=== PATIENT | female | born 1975 | race Caucasian/White ===

== ENCOUNTER 2016-11-07 10:57 | Emergency (ER) | payer OTHER ==
[2016-11-07 11:25] VITALS: TEMP 98.6
[2016-11-07 12:06] VITALS: BP 114/72; PULSE 84; RESP 18; O2SAT 96
[2016-11-07] MEDS ORDERED: NS 1,000 ML IV ONE (12:25)
--- NOTE | 2016-11-07 13:52 | EDPHY ---
H & P Time Seen by Provider: 11/07/16 13:32 HPI/ROS: CHIEF COMPLAINT: Anxiety HISTORY OF PRESENT ILLNESS: 41-year-old female with a history of anxiety presents with worsening anxiety. She takes Zoloft and Xanax as needed for anxiety. She has been gradually weaning herself off Xanax and was on 0.5 mg twice daily. She decided to throw out her bottle of Xanax on Monday and has not taken any Xanax since then. Since then she has had increasing anxiety and is very concerned about having a seizure. She has been unable to function well because of anxiety. She has an appointment on with her primary care physician. REVIEW OF SYSTEMS: Constitutional: No fever, no chills Eyes: No visual changes ENT: No sore throat Respiratory: No cough, no shortness of breath Cardiac: No chest pain Gastrointestinal: No nausea, no vomiting, no abdominal pain Genitourinary: no dysuria Musculoskeletal: No leg pain or swelling Skin: No rash Neurological: No headache Psychiatric: Anxiety Past Medical/Surgical History: Depression Anxiety Social History: No recent alcohol Smoking Status: Former smoker Physical Exam: General Appearance: Alert, anxious Eyes: Pupils equal and round, no conjunctival pallor or injection ENT, Mouth: Mucous membranes moist Neck: Normal inspection Respiratory: Lungs are clear to auscultation Cardiovascular: Regular rate and rhythm Gastrointestinal: Abdomen is soft and nontender Neurological: A&O, nonfocal, normal gait Skin: Warm and dry, no rash Extremities: Nontender, no pedal edema Psychiatric: anxious Constitutional: Initial Vital Signs Temperature (C) 37.0 C 11/07/16 11:23 Heart Rate 108 H 11/07/16 11:23 Respiratory Rate 24 H 11/07/16 11:23 Blood Pressure 120/66 11/07/16 11:23 O2 Sat (%) 100 11/07/16 11:23 O2 Delivery Mode Room Air Allergies/Adverse Reactions: codeine Allergy (Verified 02/15/13 08:32) Sulfa (Sulfonamide Antibiotics) Allergy (Verified 02/15/13 08:32) Home Medications: Medication Instructions Recorded Zoloft 02/15/13 ALPRAZolam [Xanax 0.5 MG (*)] 0.5 mg PO Q6 PRN #10 tab 11/07/16 Xanax 11/07/16 Medical Decision Making ED Course/Re-evaluation: Patient presents with uncontrolled anxiety. I wrote a prescription for Xanax 10. She understands that this will be orally prescription for benzodiazepines for chronic anxiety. - Data Points Medications Given: Discontinued Medications Sodium Chloride (Ns) 1,000 mls @ 0 mls/hr IV ONCE ONE PRN Reason: Wide Open Stop: 11/07/16 12:26 Last Admin: 11/07/16 12:29 Dose: 1,000 mls Departure - Departure Disposition: Home, Routine, Self-Care Clinical Impression: Anxiety Condition: Good Instructions: Anxiety (ED) Additional Instructions: Keep your appointment on . Referrals: Valery Sheehan MD [Primary Care Provider] - As per Instructions Prescriptions: ALPRAZolam [Xanax 0.5 MG (*)] 0.5 mg PO Q6 PRN #10 tab PRN Reason: Anxiety
== END 2016-11-07 14:10 | disposition home or self-care (01) ==
DX: F41.9 Anxiety disorder, unspecified (principal); Z87.891 Personal history of nicotine dependence

== ENCOUNTER 2017-01-03 13:27 | Emergency (ER) | payer OTHER ==
[2017-01-03 13:34] VITALS: TEMP 97.9
[2017-01-03] MEDS ORDERED: NS 1,000 ML IV ONE (14:06)
[2017-01-03] MEDS ORDERED: CLINDAMYCIN 600 MG/DEXTROSE 50 ML IV ONE (14:06)
[2017-01-03] MEDS ORDERED: DEXAMETHASONE 10 MG/ML VIAL IVP ONE (14:06)
[2017-01-03] MEDS ORDERED: LORazepam 2 MG/ML INJ IVP ONE (14:06)
--- NOTE | 2017-01-03 14:09 | EDPHY ---
H & P Stated Complaint: SENT FROM WITH L [facility]ITONSILLAR [facility] Time Seen by Provider: 01/03/17 13:59 HPI/ROS: CHIEF COMPLAINT: Referred from urgent care for possible peritonsillar abscess HISTORY OF PRESENT ILLNESS: Patient presents to the ED from urgent care with a 3 day history of worsening sore throat. The patient was noted to have some asymmetric swelling in her pharynx which prompted her referral to the emergency department. The patient does report unilateral odynophagia but denies trismus. She denies any complaints of acute cough. She does complain of some left ear pain. The patient denies any recent antibiotic use. She denies prior history of strep throat. The patient has no complaints of acute abdominal pain, vomiting or diarrhea. REVIEW OF SYSTEMS: A comprehensive 10 point review of systems is otherwise negative aside from elements mentioned in the history of present illness. Source: Patient Exam Limitations: No limitations - Personal History LMP (Females 10-55): Hysterectomy Current Tetanus/Diphtheria Vaccine: Unsure Tetanus Vaccine Date: 2006 - Medical/Surgical History Hx Asthma: No Hx Chronic Respiratory Disease: No Hx Diabetes: No Hx Cardiac Disease: No Hx Renal Disease: No Hx Cirrhosis: No Hx Alcoholism: No Hx HIV/AIDS: No Hx Splenectomy or Spleen Trauma: No Other PMH: hysterectomy, anxiety, cholecystectomy - Social History Smoking Status: Former smoker - Physical Exam Exam: General Appearance: Alert, no distress Eyes: Pupils equal and round no pallor or injection ENT, Mouth: There is posterior pharyngeal erythema with a small ulcerative lesion in the peritonsillar tissues, there is no significant trismus, the swelling is asymmetric Respiratory: There are no retractions, lungs are clear to auscultation Cardiovascular: Regular rate and rhythm Gastrointestinal: Abdomen is soft and nontender, no masses, bowel sounds normal Neurological: A&O, normal motor function, normal sensory exam, normal cranial nerves Skin: Warm and dry, no rashes Musculoskeletal: Neck is supple nontender Extremities: symmetrical, full range of motion Constitutional: Initial Vital Signs Temperature (C) 36.6 C 01/03/17 13:31 Heart Rate 77 01/03/17 13:31 Respiratory Rate 16 01/03/17 13:31 Blood Pressure 130/77 H 01/03/17 13:31 O2 Sat (%) 99 01/03/17 13:31 O2 Delivery Mode Room Air Allergies/Adverse Reactions: codeine Allergy (Verified 01/03/17 13:31) Sulfa (Sulfonamide Antibiotics) Allergy (Verified 01/03/17 13:31) FLU VACCINE Allergy (Uncoded 01/03/17 13:31) Home Medications: Medication Instructions Recorded Zoloft 02/15/13 ALPRAZolam [Xanax 0.5 MG (*)] 0.5 mg PO Q6 PRN #10 tab 11/07/16 Xanax 11/07/16 Medical Decision Making ED Course/Re-evaluation: The patient presents to the ED with symptoms consistent with a pharyngitis resulting in asymmetric pharyngeal swelling. I appreciate no significant fluctuance on examination. My clinical suspicion for a significant peritonsillar abscess is low. The patient had a IV established. She received 10 mg of Decadron and 600 mg of clindamycin. The patient is quite anxious to receive 1 mg of IV Ativan. I spoke with the on-call ENT service. They will evaluate the patient in their office right now Differential Diagnosis: Differential diagnosis considered includes peritonsillar abscess, pharyngitis, retropharyngeal abscess - Data Points Medications Given: Discontinued Medications Dexamethasone (Decadron Injection) 10 mg IVP EDNOW ONE Stop: 01/03/17 14:07 Last Admin: 01/03/17 14:27 Dose: 10 mg Sodium Chloride (Ns) 1,000 mls @ 0 mls/hr IV ONCE ONE; Wide Open PRN Reason: Protocol Stop: 01/03/17 14:07 Last Admin: 01/03/17 14:36 Dose: 1,000 mls Clindamycin Phosphate/Dextrose (Cleocin 600 Mg (Premix)) 50 mls @ 100 mls/hr IV EDNOW ONE PRN Reason: Protocol Stop: 01/03/17 14:35 Last Admin: 01/03/17 14:27 Dose: 50 mls Lorazepam (Ativan Injection) 1 mg IVP EDNOW ONE Stop: 01/03/17 14:07 Last Admin: 01/03/17 14:27 Dose: 1 mg Departure - Departure Disposition: Home, Routine, Self-Care Clinical Impression: Acute pharyngitis Condition: Good Instructions: Pharyngitis (ED) Additional Instructions: 1. Please go directly to [facility] ENT on the 1st floor the hospital they are expecting you for a quick evaluation. Referrals: Jorje Infante PA [Physician Human Resources Training Manager] - As per Instructions
[2017-01-03 15:02] VITALS: BP 110/72; PULSE 81; RESP 15; O2SAT 98
== END 2017-01-03 15:07 | disposition home or self-care (01) ==
DX: J02.9 Acute pharyngitis, unspecified (principal); E86.9 Volume depletion, unspecified; Z87.891 Personal history of nicotine dependence
CPT/HCPCS: 96365; J1100; J2060

== ENCOUNTER 2018-04-15 08:25 | Emergency (ER) | payer OTHER ==
[2018-04-15 08:32] VITALS: BP 112/78
[2018-04-15] MEDS ORDERED: LORazepam 1 MG TAB PO ONE (09:01)
--- NOTE | 2018-04-15 09:01 | EDPHY ---
H & P Stated Complaint: chest tightness/"feels heart racing" anxiety Source: Patient Exam Limitations: No limitations - Personal History LMP (Females 10-55): Hysterectomy Current Tetanus Diphtheria and Acellular Pertussis (TDAP): Yes Tetanus Vaccine Date: 2006 - Medical/Surgical History Hx Asthma: No Hx Chronic Respiratory Disease: No Hx Diabetes: No Hx Cardiac Disease: No Hx Renal Disease: No Hx Cirrhosis: No Hx Alcoholism: No Hx HIV/AIDS: No Hx Splenectomy or Spleen Trauma: No Other PMH: hysterectomy, anxiety, cholecystectomy - Social History Smoking Status: Current every day smoker Time Seen by Provider: 04/15/18 08:56 HPI/ROS: HPI: This is a 43-year-old female who presents with Chief Complaint: chest tightness/"feels heart racing" anxiety Location: heart Quality: Chest tightness, heart racing, anxiety Duration: Approximately 3 hr prior to arrival Signs and Symptoms: no shortness of breath at rest, no shortness of breath on exertion, no cough, no chest pain, + palpitations, no lower extremity edema, no wheezing, no orthopnea, no paroxysmal nocturnal dyspnea, no fever, no injury/ trauma, no hemoptysis, no carpal pedal spasms Timing: Acute, intermittent episodes Severity: Moderate Context: Patient arrives from [facility] with complaints shortness of breath, rapid breathing pattern, palpitations since waking up this morning around 5:00 a.m. Patient reports that she has a history of anxiety and depression has not had any medications in October 2017. She has an appointment to see her primary care provider this Monday to discuss medications. She reports that in the past she took clonazepam pretty regularly. She has not had this medication for 6 months. She denies any homicidal ideation, suicidal ideation, hallucinations. She has no recent long distance travel. Does not take hormone replacement therapy. + tobacco user. No recent upper respiratory symptoms. No history of thyroid disease. No longer has her menses status post hysterectomy. Modifying Factors: Meditation and breathing techniques with mild relief of symptoms Comment: ROS: A comprehensive 10 system review of systems is otherwise negative aside from elements mentioned in the history of present illness. MEDICAL/SURGICAL/SOCIAL HISTORY: Medical history: Anxiety. Does not take any regular medications. Surgical history: Hysterectomy, cholecystectomy Social history: . Current every day smoker. CONSTITUTIONAL: Slightly anxious but polite and cooperative middle-aged white female, nontoxic in appearance, awake and alert, no obvious distress HEENT: Atraumatic and normocephalic, PERRL, EOMI. Nares patent; no rhinorrhea; no nasal mucosal edema. Tympanic membranes clear. Oropharynx clear, no exudate and moist pink mucosa. Airway patent. No lymphadenopathy. No meningismus. Cardiovascular: Normal S1/S2, regular rate, regular rhythm, without murmur rub or gallop. PULMONARY/CHEST: Symmetrical and nontender. Clear to auscultation bilaterally. Good air movement. No accessory muscle usage. ABDOMEN: Soft, nondistended, nontender, no rebound, no guarding, no peritoneal signs, no masses or organomegaly. No CVAT. EXTREMITIES: 2/2 pulses, strength 5/5, no deformities, no clubbing, no cyanosis or edema. Negative Homans sign. NEUROLOGICAL: no focal neuro deficits. GCS 15. SKIN: Warm and dry, no erythema. no rash. Good capillary refill. (Meg Herrera) Constitutional: Initial Vital Signs Temperature (C) 37 C 04/15/18 08:29 Heart Rate 74 04/15/18 08:29 Respiratory Rate 18 04/15/18 08:29 Blood Pressure 112/78 04/15/18 08:29 O2 Sat (%) 99 04/15/18 08:29 O2 Delivery Mode Room Air Allergies/Adverse Reactions: codeine Allergy (Verified 04/15/18 08:26) Sulfa (Sulfonamide Antibiotics) Allergy (Verified 04/15/18 08:26) FLU VACCINE Allergy (Uncoded 01/03/17 13:31) Home Medications: Medication Instructions Recorded hydrOXYzine HCL [hydrOXYzine HCL 25 - 50 mg PO Q8 PRN #6 tab 04/15/18 (RX)] Medical Decision Making - Diagnostics EKG Interpretation: 12 lead EKG is interpreted in [place] by emergency department physician. (Jessica Caban) ED Course/Re-evaluation: Vital signs reviewed and stable upon arrival. Placed on alarm security or surveillance monitor. Patient monitored for 2 hr in the emergency room with normal sinus rhythm. EKG my read shows normal sinus rhythm with a rate of 81 beats per minute no signs of arrhythmia, no heart block, no acute ischemic changes. I offered patient IV access with laboratory studies and she politely declined as she has a follow-up appointment with her primary care provider on Monday. She understands that laboratory studies would rule out anemia, electrolyte imbalance, thyroid disease, dehydration, acute coronary syndrome, VTE. She believes that this is all related to anxiety. PERC rule= 0; low risk pulmonary embolism Patient given 2 mg p.o. Ativan with resolution of symptoms. I did give her prescription for hydroxyzine for the interim until she sees her primary care provider on Monday. This patient was seen under the supervision of my secondary supervising physician. I evaluated care for this patient independently. (Meg Herrera) The patient was evaluated and managed by the physician gallery assistant. I have reviewed this chart and I agree with the findings and plan of care as documented , as indicated by my signature. I am the secondary supervising physician. ( Jessica Caban) Differential Diagnosis: Palpitations differential includes SVT, [id number], heart block, PVCs , anemia, thyroid disease, anxiety, electrolyte imbalance. (Meg Herrera) - Data Points Medications Given: Discontinued Medications Lorazepam (Ativan) 2 mg PO EDNOW ONE Stop: 04/15/18 09:02 Last Admin: 04/15/18 09:06 Dose: 2 mg Departure - Departure Disposition: Home, Routine, Self-Care Clinical Impression: Panic attack, Anxiety Condition: Good Instructions: Heart Palpitations (ED), Panic Attack (ED) Additional Instructions: Please keep your follow-up appointment with PCP on Monday. If palpitations continue over the next week please follow-up with Cardiology. Practice relaxation techniques. Take hydroxyzine 25-50 mg every 8 hr as needed for anxiety. Return to the ER immediately if you experience new, continued or worsened chest pain, chest pain that radiates, chest pain accompanied by exertion or associated with shortness of breath, sweating, nausea, dizziness, back pain, or any other symptoms that concern you. Referrals: DOCTOR STEPHEN [Other] - 04/18/18 Prescriptions: hydrOXYzine HCL [hydrOXYzine HCL (RX)] 25 - 50 mg PO Q8 PRN #6 tab PRN Reason: Anxiety
[2018-04-15] MEDS ORDERED: LORazepam 2 MG/ML INJ ONE (09:02)
--- NOTE | 2018-04-15 16:33 | CPEKG ---
Test Reason : OPEN Blood Pressure : / mmHG Vent. Rate : 081 BPM Atrial Rate : 077 BPM P-R Int : 119 ms QRS Dur : 079 ms QT Int : 380 ms P-R-T Axes : 072 020 048 degrees QTc Int : 441 ms Sinus rhythm Confirmed by Jessica Caban ([id number]) on 04/15/2018 4:33:39 PM Referred By: PHYSICIAN ED Confirmed By:Jessica Caban
== END 2018-04-15 09:05 | disposition home or self-care (01) ==
DX: R00.2 Palpitations (principal); F41.0 Panic disorder [episodic paroxysmal anxiety]; F17.200 Nicotine dependence, unspecified, uncomplicated
CPT/HCPCS: J2060